=== PATIENT | female | born 1995 ===

== ENCOUNTER 2018-11-27 13:52 | Emergency (ER) | payer SELFPAY ==
[2018-11-27 14:11] VITALS: BP 106/70; PULSE 109; RESP 18; TEMP 98.6; O2SAT 98
[2018-11-27] MEDS ORDERED: Oxycodone/Acetaminophen 5/325 mg Tab PO STA (15:35)
--- NOTE | 2018-11-27 15:35 | ED PDOC ---
HPI: Female Pain Time Seen by Provider: 11/27/18 15:33 Chief Complaint (Nursing): Female Genitourinary Chief Complaint (Provider): labial tenderness History Per: Patient (23 y/o female here with left labial pain/swelling associated x 3 days. Patient has h/o Bartholin's cyst intermittent currently on Amoxicillin. STates she has had cyst drained 8 times in past. No fevers/chills. Currenly traveling from [facility] and plans to return 12/14/2018.) Past Medical History Reviewed: Historical Data, Nursing Documentation, Vital Signs Vital Signs: Last Vital Signs Temp 98.6 F 11/27/18 14:11 Pulse 109 H 11/27/18 14:11 Resp 18 11/27/18 14:11 BP 106/70 11/27/18 14:11 Pulse Ox 98 11/27/18 14:11 - Family History Family History: States: No Known Family Hx - Allergies Allergies/Adverse Reactions: Allergies Allergy/AdvReac Type Severity Reaction Status Date / Time No Known Allergies Allergy Verified 11/27/18 14:26 Review of Systems ROS Statement: Except As Marked, All Systems Reviewed And Found Negative Physical Exam - Reviewed Nursing Documentation Reviewed: Yes Vital Signs Reviewed: Yes - Physical Exam Appears: Positive for: Well, Non-toxic, No Acute Distress Head Exam: Positive for: ATRAUMATIC, NORMAL INSPECTION, NORMOCEPHALIC Skin: Positive for: Normal Color, Warm, DRY Eye Exam: Positive for: EOMI, Normal appearance, PERRL ENT: Positive for: Normal ENT Inspection Neck: Positive for: Normal, Painless ROM Cardiovascular/Chest: Positive for: Regular Rate, Rhythm Respiratory: Positive for: CNT, Normal Breath Sounds Gastrointestinal/Abdominal: Positive for: Normal Exam, Soft Pelvic Exam: Negative for: External Exam Normal (left labial swelling noted with tenderness.) Back: Positive for: Normal Inspection Extremity: Positive for: Normal ROM Neurological/Psych: Positive for: Awake, Alert, Normal Tone - ECG O2 Sat by Pulse Oximetry: 98 - Progress ED Course And Treament: DR. AYERS IN ED FOR EVALUATION OF PATIENT. PATIENT HAS BARTHOLIN'S CYST BUT NOT READY TO I & D. DR. AYERS HAS ADVISED WARM SOAKS AND F/U WITH CLINIC IN FEW DAYS OR IF UNCONTROLLED PAIN AND UNABLE TO F/U RETURN TO ED. PATIENT LEFT PRIOR TO RECEIVING PRINTED DISCHARGE INSTRUCTIONS. Disposition - Clinical Impression Clinical Impression: Bartholin cyst - Patient ED Disposition Is Patient to be Admitted: No - Disposition [facility] Disposition: Routine/Home Disposition Time: 17:06 Condition: FAIR Instructions: Bartholin's Gland Cyst Print Language: TUVALUAN
[2018-11-27] MEDS ORDERED: Oxycodone/Acetaminophen 5/325 mg Tab ONE (15:41)
--- NOTE | 2018-11-27 18:12 | CP.PCM.CON ---
History of Present Illness - History of Present Illness History of Present Illness: Patient is a 23 yo female with a history of Barholian abscesses, presented to ER with a recurrent left Bartholian glad abscess. The patient is visiting from [place], reports this started to increase in size and cause pain over the last few days. Patient has been doing repetative sitz baths with no relief. She also reports she has had to have the same Bartholian abscess drained at least 7 times previously. Patient otherwise denies VB, fever, N/V, abdominal pain, SOB, CP Past Patient History - Infectious Disease Hx of Infectious Diseases: None - Past Social History Smoking Status: Unknown If Ever Smoked - PSYCHIATRIC Hx Substance Use: No Meds Allergies/Adverse Reactions: Allergies Allergy/AdvReac Type Severity Reaction Status Date / Time No Known Allergies Allergy Verified 11/27/18 14:26 Physical Exam - Constitutional Appears: Well - Head Exam Head Exam: ATRAUMATIC - Respiratory Exam Respiratory Exam: NORMAL BREATHING PATTERN - Cardiovascular Exam Cardiovascular Exam: REGULAR RHYTHM - GI/Abdominal Exam GI & Abdominal Exam: Normal Bowel Sounds, Soft - Exam Additional comments: left Bartholian abscess noted, soft, errythematous and slightly painful to touch, no spontaneous drainage noted - Extremities Exam Extremities exam: Positive for: normal inspection - Skin Skin Exam: Normal Color Results - Vital Signs Recent Vital Signs: Last Vital Signs Temp 98.6 F 11/27/18 14:11 Pulse 109 H 11/27/18 14:11 Resp 18 11/27/18 14:11 BP 106/70 11/27/18 14:11 Pulse Ox 98 11/27/18 17:07 Assessment & Plan - Assessment and Plan (Free Text) Assessment: A/P 23 yo with Bartholian abscess for evaluation 1. patient has a history of Bartholian abscess in the same location. On exam, area is swollen, painful and soft. Discussed with patient that would not recommend drainage at this point. 2. Discussed continuing sitz baths, medication for pain and for follow up in clinic if possible. 3. All questions answered. Consult appreciated - Date & Time Date: 11/27/18 Time: 18:12
== END 2018-11-27 17:05 | disposition home or self-care (01) ==
LOC: H.ER 13:52
DX: N75.0 Cyst of Bartholin's gland (principal)